=== PATIENT | female | born 1995 | race Caucasian/White ===

== ENCOUNTER 2018-03-11 16:06 | Emergency (ER) | payer OTHER ==
[2018-03-11 17:24] VITALS: RESP 18
[2018-03-11] MEDS ORDERED: ONDANSETRON 4 MG ODT STARTER PACK 2 TAB BTL PO STA (18:43)
--- NOTE | 2018-03-11 18:45 | ED ---
Abdominal Pain HPI - General Chief Complaint: Abdominal Pain Stated Complaint: abd pain Time Seen by Provider: 03/11/18 18:40 Source: patient Mode of arrival: ambulatory Limitations: no limitations - History of Present Illness Initial Comments: 22-year-old female patient presents to the emergency department today for evaluation of vomiting and diarrhea. Patient states that symptoms started this morning, states that she is feeling improved however her boss requires a note to return to work. Patient states that she did have one episode of diarrhea this morning. States that she's had multiple episodes of diarrhea throughout the afternoon. She denies any hematochezia, melena, or hematemesis. Denies any fevers or chills. She is having some mild midepigastric discomfort but denies any other abdominal pain. Denies any back pain, hematuria, dysuria, urinary frequency, urinary urgency. She denies any chance of . Patient does report that her roommate is sick with similar symptoms. Patient denies any recent rash, shortness breath, chest pain, back pain, numbness, tingling, dizziness, weakness, hematuria, dysuria, urinary urgency, urinary frequency, headache, visual changes, or any other complaints. - Related Data Home Medications Medication Instructions Recorded Confirmed No Known Home Medications 03/11/18 03/11/18 Allergies Allergy/AdvReac Type Severity Reaction Status Date / Time No Known Allergies Allergy Verified 03/11/18 18:41 Review of Systems ROS Statement: Those systems with pertinent positive or pertinent negative responses have been documented in the HPI. ROS Other: All systems not noted in ROS Statement are negative. Past Medical History Past Medical History: GERD/Reflux History of Any Multi-Drug Resistant Organisms: None Reported Past Surgical History: No Surgical Hx Reported Past Psychological History: No Psychological Hx Reported Smoking Status: Never smoker Past Alcohol Use History: None Reported Past Drug Use History: None Reported General Exam Limitations: no limitations General appearance: alert, in no apparent distress, other (This is a well- developed, well-nourished adult female patient in no acute distress. Vital signs upon presentation are temperature 98.2F, pulse 69, respirations 18, blood pressure 130/80, pulse ox 99% on room air.) Eye exam: Present: normal appearance, PERRL, EOMI. Absent: scleral icterus, conjunctival injection, periorbital swelling ENT exam: Present: normal exam, mucous membranes moist Respiratory exam: Present: normal lung sounds bilaterally. Absent: respiratory distress, wheezes, rales, rhonchi, stridor Cardiovascular Exam: Present: regular rate, normal rhythm, normal heart sounds. Absent: systolic murmur, diastolic murmur, rubs, gallop, clicks GI/Abdominal exam: Present: soft, normal bowel sounds. Absent: distended, tenderness, guarding, rebound, rigid Neurological exam: Present: alert, oriented X3, CN II-XII intact Psychiatric exam: Present: normal affect, normal mood Skin exam: Present: warm, dry, intact, normal color. Absent: rash Course Vital Signs 03/11/18 17:21 Temperature 98.2 F Pulse Rate 69 Respiratory 18 Rate Blood Pressure 130/80 O2 Sat by Pulse 99 Oximetry Medical Decision Making - Medical Decision Making 22-year-old female patient presented to the emergency department today requesting work note. Patient had some vomiting and diarrhea earlier in the day and is unable to return to work without a note. Patient was offered lab testing IV fluids, and medications for her symptoms however she refuses stating she just stated that over the to be discharged. Return parameters were discussed in detail. She is instructed to follow-up with her primary care physician for recheck as soon as possible. She verbalizes understanding and agrees this plan Disposition Clinical Impression: Gastroenteritis Disposition: HOME SELF-CARE Condition: Good Instructions: Gastroenteritis (ED) Additional Instructions: Start with clear liquid diet and advance as tolerated. Take medication as directed. Return immediately for any new, worsening, or concerning symptoms. Is patient prescribed a controlled substance at d/c from ED?: No Referrals: None,Stated [Primary Care Provider] - 1-2 days Time of Disposition: 18:45
[2018-03-11 19:25] VITALS: BP 112/65; PULSE 77; TEMP 96.4
== END 2018-03-11 19:24 | disposition home or self-care (01) ==
LOC: EC 16:06
DX: K52.9 Noninfective gastroenteritis and colitis, unspecified (principal)
CPT/HCPCS: 99283; S0119

== ENCOUNTER 2022-03-15 08:38 | Emergency (ER) | payer MEDICAID ==
[2022-03-15 08:50] VITALS: BP 116/70; PULSE 78; RESP 16; TEMP 98.6
[2022-03-15 09:43] LABS: ALT 42 U/L (4-34); AST 32 U/L (14-36); African American GFR (CKD) >90 (>60 ml/min/1.73 sqM); Albumin 4.4 g/dL (3.5-5.0); Alkaline Phosphatase 70 U/L (38-126); Anion Gap 7 mmol/L; Blood Urea Nitrogen 6 mg/dL (7-17); Calcium 9.1 mg/dL (8.4-10.2); Carbon Dioxide 25 mmol/L (22-30); Chloride 103 mmol/L (98-107); Glucose 86 mg/dL (74-99); Non-African American GFR(CKD) >90 (>60 ml/min/1.73 sqM); Potassium 3.8 mmol/L (3.5-5.1); Sodium 135 mmol/L (137-145); Total Bilirubin 0.6 mg/dL (0.2-1.3); Total Protein 7.2 g/dL (6.3-8.2)
[2022-03-15 09:45] LABS: Basophils % (A) 0 %; Eosinophils # (A) 0.1 k/uL (0-0.7); Eosinophils % (A) 2 %; HCT 38.4 % (34.0-46.0); Lymphocytes # (A) 1.3 k/uL (1.0-4.8); Lymphocytes % (A) 16 %; MCH 27.8 pg (25.0-35.0); MCV 81.8 fL (80.0-100.0); Mean Platelet Volume 7.5; Monocytes # (A) 0.3 k/uL (0-1.0); Monocytes % (A) 4 %; Neutrophils # (A) 6.2 k/uL (1.3-7.7); Neutrophils % (A) 77 %; Platelet Count 397 k/uL (150-450); RBC 4.69 m/uL (3.80-5.40); RDW 12.1 % (11.5-15.5); WBC 8.1 k/uL (3.8-10.6)
--- NOTE | 2022-03-15 10:08 | ED ---
Female Urogenital HPI - General Chief complaint: Vaginal Bleeding Stated complaint: 10 weeks , vaginal bleeding Time Seen by Provider: 03/15/22 09:11 Source: patient, RN notes reviewed Mode of arrival: ambulatory Limitations: no limitations - History of Present Illness Initial comments: This is a 26-year-old female who presents to the emergency department for vaginal bleeding. She is and approximately 10 weeks . States that late last night, she started having vaginal bleeding, and this morning she is only having light spotting. Denies passing any clots. She has minor lower abdominal cramping and nausea. However, the nausea has been present throughout most of the . She is established with Dr. Esparza, [employer] [employer], and had an ultrasound 8 days ago that revealed no irregularities. Denies any fevers, chills, sore throat, cough, dyspnea, chest pain, palpitations, vomiting, diarrhea, back pain, or headaches. MD Complaint: vaginal bleeding Onset/Timin -: days(s) Patient : Yes Number of weeks : 10 - Related Data Home Medications Medication Instructions Recorded Confirmed No Known Home Medications 03/11/18 03/11/18 Allergies Allergy/AdvReac Type Severity Reaction Status Date / Time No Known Allergies Allergy Verified 03/15/22 08:47 Review of Systems ROS Statement: Those systems with pertinent positive or pertinent negative responses have been documented in the HPI. ROS Other: All systems not noted in ROS Statement are negative. Past Medical History Past Medical History: GERD/Reflux History of Any Multi-Drug Resistant Organisms: None Reported Past Surgical History: No Surgical Hx Reported Past Psychological History: No Psychological Hx Reported Past Alcohol Use History: None Reported Past Drug Use History: None Reported General Exam Limitations: no limitations General appearance: alert, in no apparent distress Head exam: Present: atraumatic, normocephalic, normal inspection Respiratory exam: Present: normal lung sounds bilaterally. Absent: respiratory distress, wheezes, rales, rhonchi, stridor Cardiovascular Exam: Present: regular rate, normal rhythm, normal heart sounds. Absent: systolic murmur, diastolic murmur, rubs, gallop, clicks GI/Abdominal exam: Present: normal bowel sounds Neurological exam: Present: alert, oriented X3, CN II-XII intact Psychiatric exam: Present: normal affect, normal mood Skin exam: Present: warm, dry, intact, normal color. Absent: rash Course Vital Signs 03/15/22 08:48 Temperature 98.6 F Pulse Rate 78 Respiratory 16 Rate Blood Pressure 116/70 O2 Sat by Pulse 96 Oximetry Medical Decision Making - Medical Decision Making This is a 26-year-old female who presents to the emergency department for vaginal bleeding in . Lab work was nonactionable. Patient is Rh+ and no RhoGAM is indicated. Obstetrics ultrasound obtained, revealing a viable intrauterine and a very minor perigestational bleed. Findings reviewed with the patient. Advised that if she continues to have any cramping, she can take Tylenol. Reminded her to avoid bfnd-oak-[id number] anti- inflammatories such as ibuprofen. Advised vitamin B6 and Unisom for any additional nausea. She is also instructed to contact her pharmacist hospital's office regarding her appointment today and her symptoms in the event they want her to follow-up sooner. Return precautions reviewed in depth, the patient is instructed to return to the emergency department with any new, worsening, or concerning symptoms. Patient verbalized understanding. This case was discussed in detail with the attending ED physician. Presentation, findings, and treatment plan discussed in detail as well. - Lab Data Result diagrams: 03/15/22 09:24 03/15/22 09:24 Lab Results 03/15/22 03/15/22 03/15/22 Range/Units 09:20 09:24 09:24 WBC 8.1 (3.8-10.6) k/uL RBC 4.69 (3.80-5.40) m/uL Hgb 13.0 (11.4-16.0) gm/dL Hct 38.4 (34.0-46.0) % MCV 81.8 (80.0-100.0) fL MCH 27.8 (25.0-35.0) pg MCHC 34.0 (31.0-37.0) g/dL RDW 12.1 (11.5-15.5) % Plt Count 397 (150-450) k/uL MPV 7.5 Neutrophils % 77 % Lymphocytes % 16 % Monocytes % 4 % Eosinophils % 2 % Basophils % 0 % Neutrophils # 6.2 (1.3-7.7) k/uL Lymphocytes # 1.3 (1.0-4.8) k/uL Monocytes # 0.3 (0-1.0) k/uL Eosinophils # 0.1 (0-0.7) k/uL Basophils # 0.0 (0-0.2) k/uL Sodium (137-145) mmol/L Potassium (3.5-5.1) mmol/L Chloride (98-107) mmol/L Carbon Dioxide (22-30) mmol/L Anion Gap mmol/L BUN (7-17) mg/dL Creatinine (0.52-1.04) mg/dL Est GFR (CKD-EPI)AfAm (>60 ml/min/1.73 sqM) Est GFR (CKD-EPI)NonAf (>60 ml/min/1.73 sqM) Glucose (74-99) mg/dL Calcium (8.4-10.2) mg/dL Total Bilirubin (0.2-1.3) mg/dL AST (14-36) U/L ALT (4-34) U/L Alkaline Phosphatase (38-126) U/L Total Protein (6.3-8.2) g/dL Albumin (3.5-5.0) g/dL HCG, Quant mIU/mL Urine Color Yellow Urine Appearance Cloudy H (Clear) Urine pH 6.0 (5.0-8.0) Ur Specific [place] 1.018 (1.001-1.035) Urine Protein Trace H (Negative) Urine Glucose (UA) Negative (Negative) Urine Ketones 2+ H (Negative) Urine Blood Large H (Negative) Urine Nitrite Negative (Negative) Urine Bilirubin Negative (Negative) Urine Urobilinogen <2.0 (<2.0) mg/dL Ur Leukocyte Esterase Negative (Negative) Urine RBC 1 (0-5) /hpf Urine WBC 2 (0-5) /hpf Ur Squamous Epith Cells 8 H (0-4) /hpf Urine Bacteria Rare H (None) /hpf Urine Mucus Few H (None) /hpf Blood Type A Positive Blood Type Recheck No Previous Record Bld Type Recheck Status [facility] ONLY 03/15/22 Range/Units 09:24 WBC (3.8-10.6) k/uL RBC (3.80-5.40) m/uL Hgb (11.4-16.0) gm/dL Hct (34.0-46.0) % MCV (80.0-100.0) fL MCH (25.0-35.0) pg MCHC (31.0-37.0) g/dL RDW (11.5-15.5) % Plt Count (150-450) k/uL MPV Neutrophils % % Lymphocytes % % Monocytes % % Eosinophils % % Basophils % % Neutrophils # (1.3-7.7) k/uL Lymphocytes # (1.0-4.8) k/uL Monocytes # (0-1.0) k/uL Eosinophils # (0-0.7) k/uL Basophils # (0-0.2) k/uL Sodium 135 L (137-145) mmol/L Potassium 3.8 (3.5-5.1) mmol/L Chloride 103 (98-107) mmol/L Carbon Dioxide 25 (22-30) mmol/L Anion Gap 7 mmol/L BUN 6 L (7-17) mg/dL Creatinine 0.58 (0.52-1.04) mg/dL Est GFR (CKD-EPI)AfAm >90 (>60 ml/min/1.73 sqM) Est GFR (CKD-EPI)NonAf >90 (>60 ml/min/1.73 sqM) Glucose 86 (74-99) mg/dL Calcium 9.1 (8.4-10.2) mg/dL Total Bilirubin 0.6 (0.2-1.3) mg/dL AST 32 (14-36) U/L ALT 42 H (4-34) U/L Alkaline Phosphatase 70 (38-126) U/L Total Protein 7.2 (6.3-8.2) g/dL Albumin 4.4 (3.5-5.0) g/dL HCG, Quant 478415.0 mIU/mL Urine Color Urine Appearance (Clear) Urine pH (5.0-8.0) Ur Specific [place] (1.001-1.035) Urine Protein (Negative) Urine Glucose (UA) (Negative) Urine Ketones (Negative) Urine Blood (Negative) Urine Nitrite (Negative) Urine Bilirubin (Negative) Urine Urobilinogen (<2.0) mg/dL Ur Leukocyte Esterase (Negative) Urine RBC (0-5) /hpf Urine WBC (0-5) /hpf Ur Squamous Epith Cells (0-4) /hpf Urine Bacteria (None) /hpf Urine Mucus (None) /hpf Blood Type Blood Type Recheck Bld Type Recheck Status - Radiology Data Radiology results: report reviewed, image reviewed Disposition Clinical Impression: Vaginal bleeding during Disposition: HOME SELF-CARE Instructions (If sedation given, give patient instructions): Non-Threatening First Trimester Vaginal Bleed (ED), Subchorionic Hemorrhage (ED) Additional Instructions: Return to the emergency department with any new, worsening, or concerning symptoms. The ultrasound revealed a perigestational bleed, which may also be referred to as a subchorionic hematoma. Contact your pharmacist hospital, and alert their office of these results. Take Tylenol as needed for any pain, and avoid ibuprofen or other anti-inflammatories. You may take [id number] vitamin B6 with Unisom as needed for nausea in . Follow up with your primary care provider in 1-2 days. Is patient prescribed a controlled substance at d/c from ED?: No Referrals: None,Stated [Primary Care Provider] - 1-2 days Jonas Esparza MD [STAFF PHYSICIAN] - 1-2 days
[2022-03-15 10:25] LABS: Appearance,Urine Cloudy (Clear); Bacteria,Urine Rare /hpf; Bilirubin,Urine Negative (Negative); Blood,Urine Large (Negative); Color,Urine Yellow; Glucose,Urine (UA) Negative (Negative); Ketones,Urine 2+ (Negative); Leukocyte Esterase,Urine Negative (Negative); Mucus,Urine Few /hpf; Nitrite,Urine Negative (Negative); Protein,Urine Trace (Negative); RBC,Urine 1 /hpf (0-5); Specific Gravity,Urine 1.018 (1.001-1.035); Squamous Epithelial Cell,Urine 8 /hpf (0-4); Urobilinogen,Urine <2.0 mg/dL (<2.0); WBC,Urine 2 /hpf (0-5)
--- NOTE | 2022-03-15 10:43 | US ---
EXAMINATION TYPE: Ultrasound OB <= 14 week fetus DATE OF EXAM: 03/15/2022 9:58 AM COMPARISON: NONE CLINICAL HISTORY: 26-year-old female Vaginal bleeding in . vaginal bleeding x 1 day EXAM PERFORMED: Transabdominal (TA) FINDINGS: EXAM MEASUREMENTS: GESTATIONAL AGE / DATING Physician Established: Not yet established Dates by LMP: (10 weeks/2 days) EDC: 10/09/22 Dates by First Scan: No previous this is first scan Dates by Current Scan for: ( weeks/1 days) EDC: 10/10/22 MATERNAL ANATOMY Uterus: 8.4 x 6.4 x 6.6cm Right Ovary: 3.8 x 2.8 x 2.5cm Left Ovary: 2.8 x 1.7 x 2.1cm Post CDS / Adnexa: appears wnl Presence of free fluid: no Presence of corpus luteal cyst: yes, hypoechoic area right ovary = 1.7 x 2.3 x 2.0cm Presence of subchorionic bleed: Yes, tiny 5 mm anterior fundal region. GESTATION / SURVEY CRL: 3.3cm (10 weeks/1 days) Yolk Sac (normal less than 6mm): 0.5cm Heart Rate: 161 bpm Rhythm: Normal IUP: Viable IUP Date of LMP: 01/02/22 Beta HcG (if available): Not available at this time IMPRESSION: 1. Single live intrauterine with estimated gestational age of 10 weeks 2 days. Current ultr asound biometry is concordant at 10 weeks 1 days by crown-rump length. 2. Tiny 5 mm perigestational bleed. 3. Follow-up as clinically indicated. Otherwise, complete survey recommended at 18-20 weeks.
== END 2022-03-15 11:00 | disposition home or self-care (01) ==
LOC: EC 08:38
DX: O20.9 Hemorrhage in early pregnancy, unspecified (principal); Z3A.10 10 weeks gestation of pregnancy
CPT/HCPCS: 36415; 76801; 80053; 81001; 84702; 85025; 86900; 86901; 99284

== ENCOUNTER 2022-10-05 08:19 | Inpatient (IN) | payer MEDICAID ==
[2022-10-05] MEDS ORDERED: OXYTOCIN 10 UNIT/ML 1 ML VIAL IM PRN (09:14)
[2022-10-05] MEDS ORDERED: TERBUTALINE 1 MG/ML VIAL SQ PRN (09:14)
[2022-10-05] MEDS ORDERED: METHYLERGONOVINE 0.2 MG/ML 1 ML AMP IM PRN (09:14)
[2022-10-05] MEDS ORDERED: CARBOPROST TROMETHAMINE 250 MCG/ML 1 ML AMP IM PRN (09:14)
[2022-10-05] MEDS ORDERED: LIDOCAINE 0.5% (PF) 5 MG/ML (50 ML SDV) SQ PRN (09:14)
[2022-10-05] MEDS ORDERED: miSOPROStoL 200 MCG TAB PO PRN (09:14)
[2022-10-05] MEDS ORDERED: TRANEXAMIC 1,000 MG/100ML-NACL 1,000 MG in EMPTY BAG 1 BAG IV PRN (09:14)
[2022-10-05] MEDS: LACTATED RINGERS 1,000 ML IV SCH ×2 (09:19→18:19)
[2022-10-05 09:33] LABS: Basophils % (A) 0 %; Eosinophils # (A) 0.1 k/uL (0-0.7); Eosinophils % (A) 1 %; HCT 38.6 % (34.0-46.0); HGB 12.9 gm/dL (11.4-16.0); Lymphocytes # (A) 0.9 k/uL (1.0-4.8); Lymphocytes % (A) 5 %; MCH 28.5 pg (25.0-35.0); MCHC 33.3 g/dL (31.0-37.0); MCV 85.5 fL (80.0-100.0); Mean Platelet Volume 8.4; Monocytes # (A) 0.3 k/uL (0-1.0); Monocytes % (A) 2 %; Neutrophils # (A) 15.9 k/uL (1.3-7.7); Neutrophils % (A) 92 %; Platelet Count 330 k/uL (150-450); RBC 4.52 m/uL (3.80-5.40); WBC 17.3 k/uL (3.8-10.6)
[2022-10-05] MEDS ORDERED: NALBUPHINE 10 MG/ML (10 ML MDV) IV PRN (10:12)
--- NOTE | 2022-10-05 10:17 | P.HPOB ---
History of Present Illness H&P Date: 10/05/22 Chief Complaint: 39-5/7 weeks, labor The patient is a 27-year-old 2 para 0010 admitted at 39-5/7 weeks as established by last menstrual period and confirmed by 9 week ultrasound. She is admitted in active labor with documented spontaneous rupture of membranes and al l signs reassuring, category 1 heart rate tracing. She does carry the diagnosis of intrauterine growth restriction with growth being steadily at the 9th percentile in the third trimester. All testing has been reassuring since 32 weeks. The fetus is thought to be constitutionally small rather than growth restricted. Group B strep status is negative. Obstetrical history: 2 para 0010 with current statistics listed in history of present illness. EDC of 10/07/2022 was established by last menstrual period and confirmed by 9 week ultrasound. Laboratory workup demonstrates a blood type of A+ with a negative antibody screen. Rubella status is immune. The remainder of the laboratory workup was within normal limits. One hour Glucola was initially elevated but followed by a normal three-hour glucose tolerance test. Group B strep status is negative. Gynecologic history: Unremarkable with no history of any infections to include STDs. Review of Systems Review of systems is confined to history of present illness. Past Medical History Past Medical History: GERD/Reflux History of Any Multi-Drug Resistant Organisms: None Reported Past Surgical History: No Surgical Hx Reported Past Psychological History: No Psychological Hx Reported Past Alcohol Use History: None Reported Past Drug Use History: None Reported Medications and Allergies Home Medications Medication Instructions Recorded Confirmed Type Vit No.179/Iron/Folic 1 each PO DAILY 10/05/22 10/05/22 History [ Tablet] Allergies Allergy/AdvReac Type Severity Reaction Status Date / Time No Known Allergies Allergy Verified 10/05/22 09:12 Exam Intake and Output 10/04/22 10/05/22 10/05/22 22:59 06:59 14:59 Other: Weight 65.317 kg In general, this is a well-developed, well-nourished white female in no acute distress. Her heart has a regular rhythm and rate without murmur. Her lungs clear to auscultation bilaterally in all [place]. Her abdomen is gravid, nondistended, has normal active bowel sounds, is soft, nontender, and without any palpable masses aside from the uterine fundus. Her extremities are without any cyanosis, clubbing, or significant edema and are nontender to palpation bilaterally. Digital cervical examination performed by the nursing staff demonstrates discharged to be 5 cm dilated, 90% effaced, the vertex in presentation at -1 station. Spontaneous rupture of membranes is documented with clear fluid. Results Result Diagrams: 10/05/22 09:18 Abnormal Lab Results - Last 24 Hours (Table) 10/05/22 Range/Units 09:18 WBC 17.3 H (3.8-10.6) k/uL Neutrophils # 15.9 H (1.3-7.7) k/uL Lymphocytes # 0.9 L (1.0-4.8) k/uL Assessment and Plan (1) Intrauterine growth retardation in Current Visit: Yes Status: Acute Code(s): O36.5990 - MATERN CARE FOR OTH OR SUSP POOR FETL GRTH, UNSP TRI, UNSP SNOMED Code(s): 547525422 (2) Active labor at term Current Visit: Yes Status: Acute Code(s): ZDX2898 - SNOMED Code(s): 00754342 Plan: The patient is admitted for active management of labor. She has requested minimal intervention if possible. She will have close maternal and surveillance and expectant management will be practiced. She is a good candidate for either IV, epidural, or nitrous analgesia, whichever she may choose.
[2022-10-05] MEDS ORDERED: HYDROCORTISONE 2.5% RECTAL CREAM 30 GM TUBE RECTAL PRN (15:12)
[2022-10-05] MEDS ORDERED: ACETAMINOPHEN TAB 325 MG TAB PO PRN (15:12)
[2022-10-05] MEDS ORDERED: BENZOCAINE/MENTHOL SPRAY 1 GM/SPRAY AEROSOL TOPICAL PRN (15:12)
[2022-10-05] MEDS ORDERED: LANOLIN CREAM 5 GM TUBE TOPICAL PRN (15:12)
[2022-10-05] MEDS ORDERED: diphenhydrAMINE 50 MG CAP PO PRN (15:12)
[2022-10-05] MEDS ORDERED: SIMETHICONE 80 MG CHEWABLE PO PRN (15:12)
[2022-10-05] MEDS ORDERED: HYDROcodone/APAP 7.5-325MG 1 EACH TAB PO PRN (15:12)
[2022-10-05] MEDS ORDERED: diphenhydrAMINE 50 MG/ML 1 ML VIAL IVP PRN ×2 (15:12)
[2022-10-05] MEDS ORDERED: ZOLPIDEM 5 MG TAB PO PRN (15:12)
[2022-10-05] MEDS ORDERED: HYDROcodone/APAP 5-325MG 1 EACH TAB PO PRN (15:12)
[2022-10-05] MEDS ORDERED: diphenhydrAMINE 25 MG CAP PO PRN (15:12)
[2022-10-05] MEDS ORDERED: OXYTOCIN 30 UNITS/500 ML NS 30 UNIT in SALINE 1 500ML.BAG IV SCH (15:15)
--- NOTE | 2022-10-05 15:15 | P.PROBDLV ---
Vaginal Delivery Note - . Vaginal Delivery Note: The patient is a 27-year-old 2 para 0010 admitted at 39-5/7 weeks by good dating parameters. She is admitted in active labor with documented spontaneous rupture of membranes and all signs reassuring, category 1 heart rate tracing. Her was complicated only by a diagnosis of intrauterine growth restriction with the fetus found at just under the 10th percentile during the third trimester. The fetus was felt to be constitutionally small rather than growth restricted. Nevertheless, the patient did have reassuring placed weekly testing from 32 weeks until labor. On labor and delivery, she requested as much nonintervention as possible. She labored on her own without augmentation and made average and steady progress to complete. She then pushed over the course of approximate 40 minutes to a normal spontaneous vaginal delivery of a viable 6 lbs. 1 oz. baby girl with Apgars of 9 at 1 minute and 9 at 5 minutes delivered in the direct occiput anterior position. The placenta was delivered spontaneously, intact, and grossly normal with a grossly normal three-vessel cord inserted approximate 4-5 cm from the margin of the placental disc. Was a small second-degree midline perineal laceration was repaired in standard fashion using 3-0 chromic catgut without difficulty. Estimated blood loss for the case was 150 mL. There were no complications. All sponge, instrument, needle counts were correct. Both mother and are resting comfortably in recovery.
[2022-10-05] MEDS: IBUPROFEN 600 MG TAB PO PRN ×2 (16:29→23:14)
[2022-10-05] MEDS: SENNOSIDES-DOCUSATE SODIUM 1 EACH TAB PO SCH (19:19)
[2022-10-06 06:19] LABS: Basophils % (A) 0 %; Eosinophils # (A) 0.1 k/uL (0-0.7); Eosinophils % (A) 0 %; HCT 34.8 % (34.0-46.0); HGB 11.7 gm/dL (11.4-16.0); Lymphocytes # (A) 1.7 k/uL (1.0-4.8); Lymphocytes % (A) 10 %; MCH 28.4 pg (25.0-35.0); MCHC 33.7 g/dL (31.0-37.0); MCV 84.2 fL (80.0-100.0); Mean Platelet Volume 8.3; Monocytes # (A) 0.7 k/uL (0-1.0); Monocytes % (A) 4 %; Neutrophils # (A) 13.9 k/uL (1.3-7.7); Neutrophils % (A) 84 %; Platelet Count 305 k/uL (150-450); RBC 4.13 m/uL (3.80-5.40); RDW 13.4 % (11.5-15.5); WBC 16.5 k/uL (3.8-10.6)
[2022-10-06] MEDS: SENNOSIDES-DOCUSATE SODIUM 1 EACH TAB PO SCH (08:53)
[2022-10-06 10:06] VITALS: RESP 18
--- NOTE | 2022-10-06 11:21 | P.DS ---
Providers Date of admission: 10/05/22 08:47 Expected date of discharge: 10/06/22 Attending physician: Jonas Esparza Primary care physician: Stated None - Discharge Diagnosis(es) (1) Active labor at term Current Visit: Yes Status: Acute (2) Intrauterine growth retardation in Current Visit: Yes Status: Acute (3) Normal spontaneous vaginal delivery Current Visit: Yes Status: Acute (4) Nuchal cord, delivered, current hospitalization Current Visit: Yes Status: Acute (5) Perineal laceration during delivery Current Visit: Yes Status: Acute (6) Spontaneous rupture of amniotic membranes Current Visit: Yes Status: Acute Hospital Course: 27-year-old admitted at 39-5/7 weeks in active labor with document of spontaneous rupture of membranes. Patient has been complicated by diagnosis of intrauterine growth restriction with the fetus found just under the 10th percentile in the third trimester. The patient did have reassuring testing from 32 weeks and to labor. On labor and delivery she requested as much nonintervention as possible. She labored on her own without augmentation and made average study progress to complete. Once complete she had a normal spontaneous vaginal delivery of a viable female infant 6 lbs. 1 oz. with Apgars of 9 and 9 at one and 5 minutes respectively. Small second-degree midline laceration was noted after delivery and repaired in the usual fashion with 3-0 chromic catgut without difficulty. Patient's course has been uneventful. On this day #1 she is ambulating and voiding without difficulty. She is tolerating a regular diet without nausea or vomiting. She states her pain is well-controlled. She would like discharge home at 24 hours if possible. Patient Condition at Discharge: Good Plan - Discharge Summary New Discharge Prescriptions: No Action Vit No.179/Iron/Folic [ Tablet] 1 each PO DAILY Discharge Medication List Vit No.179/Iron/Folic [ Tablet] 1 each PO DAILY 10/05/22 [History] Follow up Appointment(s)/Referral(s): Jonas Esparza MD [STAFF PHYSICIAN] - 4 Weeks Patient Instructions/Handouts: Vaginal Delivery (DC), Vaginal Delivery (GEN) Activity/Diet/Wound Care/Special Instructions: No tub baths or intercourse until 6 weeks . Gflr-bye-ciflxgg ibuprofen 600 mg every 6 hours as needed for pain. Discharge Disposition: HOME SELF-CARE
[2022-10-06 12:34] VITALS: BP 107/72; PULSE 101; TEMP 98.2
== END 2022-10-06 16:16 | disposition home or self-care (01) | DRG 807 ==
LOC: FBPOP 08:19 → 4FBP 08:47
PROVIDERS: ADMIT Obstetrics & Gynecology; ATTEND Obstetrics & Gynecology
PROC: 0KQM0ZZ Repair Perineum Muscle, Open Approach (ICD-10-PCS; principal; 2022-10-05)
PROC: 10E0XZZ Delivery of Products of Conception, External Approach (ICD-10-PCS; principal; 2022-10-05)
DX: O36.5930 Maternal care for other known or suspected poor fetal growth, third trimester, not applicable or unspecified (principal); Z37.0 Single live birth; O69.81X0 Labor and delivery complicated by cord around neck, without compression, not applicable or unspecified; O70.1 Second degree perineal laceration during delivery; Z3A.39 39 weeks gestation of pregnancy; Z28.310 Unvaccinated for COVID-19; Z28.21 Immunization not carried out because of patient refusal
CPT/HCPCS: 85025; 86850; 86900; 86901

== ENCOUNTER 2024-09-01 16:18 | Outpatient (CLI) | payer MEDICAID ==
[2024-09-01 18:32] VITALS: BP 118/60; PULSE 80; RESP 16; TEMP 97.2
--- NOTE | 2024-09-19 11:37 | P.MSEPDOC ---
Presenting Problems - Arrival Data Date of Arrival on Unit: 09/01/24 Time of Arrival on Unit: 16:18 Mode of Transport: Ambulatory - Complaint OB-Reason for Admission/Chief Complaint: Headache, Dizziness Comment: PT here to be seen in triage for dizziness, headaches and decreased BP. was working ng ED to day and her Bp was 96/66 there so she came up to trage to be evauated Medical History - Information : 2 Para: 1 Term: 1 : 0 Abortions: Spontaneous or Elective: 0 Number of Living Children: 1 - Gestational Age Gestational Age by YEIMY (wks/days): 32 Weeks and 3 Days Review of Systems - Review of Systems Constitutional: No problems Breast: No problems ENT: No problems Cardiovascular: No problems Respiratory: No problems Gastrointestinal: No problems Genitourinary: No problems Musculoskeletal: No problems Neurological: No problems Skin: No problems Vital Signs - Temperature Temperature: 97.2 F Temperature Source: Temporal Artery Scan - Pulse Left Pulse Rate: 80 Pulse Assessment Method: Automatic Cuff - Respirations Respiratory Rate: 16 Oxygen Delivery Method: Room Air O2 Sat by Pulse Oximetry: 98 - Blood Pressure Left Arm Blood Pressure: 118/60 Blood Pressure Mean: 79 Blood Pressure Source: Automatic Cuff Medical Screen Scoring - Uterine Contractions Frequency From (mins): 0 Frequency To (mins): 0 Duration From (seconds): 0 Duration To (seconds): 0 Resting: Soft to palpation - Assessment - Baby A Baseline FHR: 140 Heart Rate - NICHD Category: Category I (Normal) NST: Reactive Physician Notification - Physician Notified Physician Notified Date: 09/01/24 Physician Notified Time: 17:15 Physician: Jonas Esparza New Order Received: Yes - Notification Comment Comment: Dr Esparza updated with pts reason for visit, maternal vitals WNL, NST reactive CAT 1. Discharge order received. Pt to be advised to hydrated well, eat small freq meals and may take tylenol for headache. Keep appt this week with Dr Esparza Maternal Triage Index - Maternal Triage Index Presenting for scheduled procedure w/no complaint: No - Stat/Priority 1 Stat Priority 1: No - Urgent/Priority 2 Urgent Priority 2: No - Prompt/Priority 3 Prompt Priority 3: No - Non-Urgent/Priority 4 Non-Urgent Priority 4: Yes Criteria Met for Priority 4: headache dizziness low blood pressure when self checked Disposition - Disposition OB Disposition: Discharge to home Discharge Date: 09/01/24 Discharge Time: 17:17 I agree with the RN Medical Screening Exam: Yes Physician's MSE Comment: I have neither seen nor examined the patient. Case reviewed; plan agreed upon as documented in EMR&OBIX.: Yes Diagnosis: RELATED CONDITIONS, UNSPECIFIED, THIRD TRIMESTER
== END 2024-09-01 17:17 ==
LOC: FBPOP 16:18
PROVIDERS: ATTEND Obstetrics & Gynecology
DX: O26.893 Other specified pregnancy related conditions, third trimester (principal); R51.9 Headache, unspecified; R42 Dizziness and giddiness; Z3A.32 32 weeks gestation of pregnancy
CPT/HCPCS: 59025; 99213

== ENCOUNTER 2024-10-09 01:45 | Inpatient (IN) | payer BC ==
[2024-10-09] MEDS ORDERED: miSOPROStoL 200 MCG TAB RECTAL PRN (01:55)
[2024-10-09] MEDS ORDERED: TERBUTALINE 1 MG/ML VIAL SQ PRN (01:55)
[2024-10-09] MEDS ORDERED: CARBOPROST TROMETHAMINE 250 MCG/ML 1 ML AMP IM PRN (01:55)
[2024-10-09] MEDS ORDERED: miSOPROStoL 200 MCG TAB PO PRN (01:55)
[2024-10-09] MEDS ORDERED: METHYLERGONOVINE 0.2 MG/ML 1 ML AMP IM PRN (01:55)
[2024-10-09] MEDS ORDERED: TRANEXAMIC 1,000 MG/100ML-NACL 1,000 MG in EMPTY BAG 1 BAG IV PRN (01:55)
[2024-10-09] MEDS ORDERED: OXYTOCIN 30 UNITS/500 ML NS 30 UNIT in SALINE 1 500ML.BAG IV SCH (02:00)
[2024-10-09] MEDS: OXYTOCIN 10 UNIT/ML 1 ML VIAL IM PRN (02:36)
[2024-10-09] MEDS: LIDOCAINE 0.5% (PF) 5 MG/ML (50 ML SDV) SQ PRN (02:37)
[2024-10-09] MEDS ORDERED: diphenhydrAMINE 50 MG CAP PO PRN (02:46)
[2024-10-09] MEDS ORDERED: ZOLPIDEM 5 MG TAB PO PRN (02:46)
[2024-10-09] MEDS ORDERED: diphenhydrAMINE 25 MG CAP PO PRN (02:46)
[2024-10-09] MEDS ORDERED: SIMETHICONE 80 MG CHEWABLE PO PRN (02:46)
[2024-10-09] MEDS ORDERED: diphenhydrAMINE 50 MG/ML 1 ML VIAL IVP PRN ×2 (02:46)
[2024-10-09] MEDS ORDERED: LANOLIN CREAM 1 GM TUBE TOPICAL PRN (02:46)
[2024-10-09] MEDS ORDERED: HYDROCORTISONE 2.5% RECTAL CREAM 30 GM TUBE RECTAL PRN (02:46)
[2024-10-09] MEDS ORDERED: BENZOCAINE/MENTHOL SPRAY 1 GM/SPRAY AEROSOL TOPICAL PRN (02:46)
--- NOTE | 2024-10-09 02:54 | P.HPOB ---
History of Present Illness H&P Date: 10/09/24 Chief Complaint: 37-6/7 weeks, active labor, IUGR The patient is a 29-year-old 3 para 1-0-1-1 admitted at 37-6/7 weeks as established by last menstrual period and confirmed by 10-week ultrasound. She is admitted in active labor with all signs reassuring, category 1 heart rate tracing. Her has been complicated by diagnosis of IUGR with twice weekly NST, weekly BPP, SOFI, and SD ratios since 32 weeks with all parameters being reassuring on a regular basis. She presents to labor and delivery at 6 cm of dilation with membranes intact but shortly thereafter had spontaneous rupture of membranes and progressed very quickly to complete. Group B strep status is negative. Obstetrical history: 3 para 1-0-1-1 with 1 term vaginal delivery also complicated by IUGR. Current statistics are listed in the history of present illness. EDC of 10/24/2024 was established by last menstrual period and confirmed by 10-week ultrasound. Laboratory workup demonstrates a blood type of A+ with a negative antibody screen. Rubella status is immune. The remainder of the laboratory workup was within normal limits. 1 hour Glucola was normal and group B strep status is negative. Gynecologic history: Unremarkable with no history of any infections to include STDs. Review of Systems Review of systems is confined to history of present illness. Past Medical History Past Medical History: GERD/Reflux History of Any Multi-Drug Resistant Organisms: None Reported Past Surgical History: No Surgical Hx Reported Past Anesthesia/Blood Transfusion Reactions: No Reported Reaction Smoking Status: Never smoker - Past Family History Father Family Medical History: No Reported History Medications and Allergies Home Medications Medication Instructions Recorded Confirmed Type Vit No.179/Iron/Folic 1 each PO DAILY 10/05/22 10/09/24 History [ Tablet] Allergies Allergy/AdvReac Type Severity Reaction Status Date / Time No Known Allergies Allergy Verified 10/05/22 09:12 Exam Intake and Output 10/08/24 10/08/24 10/09/24 14:59 22:59 06:59 Other: Weight 66.224 kg In general, this is a well-developed, well-nourished white female in discomfort as she is in active labor. Her heart has a regular rhythm and rate without murmur. Her lungs are clear to auscultation bilaterally in all plunkett. Her abdomen is gravid, nondistended, has normal active bowel sounds, soft, nontender, and without any palpable masses aside from uterine fundus. Her extremities are without any cyanosis, clubbing, or edema and are nontender to palpation bilaterally. Digital cervical examination demonstrates her cervix to be 6 cm dilated, 90% effaced, the vertex and presentation at -1-2 station. Membranes are intact at admission. Assessment and Plan (1) Intrauterine growth retardation in Current Visit: Yes Status: Acute Code(s): O36.5990 - MATERN CARE FOR OTH OR SUSP POOR FETL GRTH, UNSP TRI, UNSP SNOMED Code(s): 878547819 (2) Active labor at term Current Visit: Yes Status: Acute Code(s): PEI9625 - SNOMED Code(s): 01592890 Plan: The patient is admitted for active management of labor. She will have close maternal and surveillance and expectant management will be practiced. She is a good candidate for IV or epidural analgesia, whichever she may choose.
--- NOTE | 2024-10-09 02:58 | P.PROBDLV ---
Vaginal Delivery Note - . Vaginal Delivery Note: Date of delivery/service: 10/09/2024 The patient is a 29-year-old 3 para 1-0-1-1 admitted at 37-6/7 weeks by good dating parameters. She is admitted in active labor with all signs reassuring, category 1 heart rate tracing. Her has been complicated by diagnosis of IUGR with reassuring twice-weekly testing since the diagnosis in the early third trimester. Group B strep status is negative. She presented to labor and delivery at 6 cm of dilation with membranes intact. She progressed over the next 10 minutes to complete and had spontaneous rupture of membranes for clear fluid. I was called both at 6 cm and at complete and arrived approximately 10 minutes after the second phone call to find the patient complete and at +3 station. She pushed over the course of the next 2 contractions to a normal spontaneous vaginal delivery of a viable 5 pound 7 ounce baby boy with Apgars of 9 at 1 minute and 9 at 5 minutes delivered in the direct occiput anterior position. The placenta was delivered spontaneously, intact, and grossly normal though it was small with a grossly normal, relatively centrally inserted three-vessel cord. There was a small first-degree midline perineal laceration noted which was repaired with a single [id number]-cabte stitch of 3-0 chromic catgut without difficulty. Estimated blood loss for the case was approximately 200 mL. There were no complications aside from a relatively precipitous nature of the labor and delivery. All sponge, instrument, and needle counts were correct. Both mother and infant are resting comfortably in recovery.
[2024-10-09] MEDS: IBUPROFEN 800 MG TAB PO PRN (04:21)
[2024-10-09 04:22] LABS: Basophils # (A) 0.04 10*3/uL (0.00-0.10); Basophils % (A) 0.2 %; Eosinophils # (A) 0.02 10*3/uL (0.04-0.35); Eosinophils % (A) 0.1 %; HCT 37.1 % (37.2-46.3); HGB 12.5 g/dL (12.0-15.0); Lymphocytes # (A) 1.19 10*3/uL (0.90-5.00); Lymphocytes % (A) 7.1 %; MCH 28.4 pg (27.0-32.0); MCHC 33.7 g/dL (32.0-37.0); MCV 84.3 fL (80.0-97.0); Mean Platelet Volume 10.3 fL (9.5-12.2); Monocytes # (A) 0.49 10*3/uL (0.20-1.00); Monocytes % (A) 2.9 %; Neutrophils # (A) 14.92 10*3/uL (1.80-7.70); Neutrophils % (A) 89.2 %; Platelet Count 361 10*3/uL (140-440); RDW 12.9 % (11.5-14.5); WBC 16.74 10*3/uL (4.50-10.00)
[2024-10-09] MEDS: LACTATED RINGERS 1,000 ML IV SCH (05:07)
[2024-10-09] MEDS: ACETAMINOPHEN TAB 500 MG TAB PO PRN (12:28)
[2024-10-09] MEDS: SENNOSIDES-DOCUSATE SODIUM 1 EACH TAB PO SCH (13:30)
[2024-10-10 07:01] LABS: Basophils # (A) 0.06 10*3/uL (0.00-0.10); Basophils % (A) 0.6 %; Eosinophils # (A) 0.09 10*3/uL (0.04-0.35); Eosinophils % (A) 0.9 %; HCT 33.6 % (37.2-46.3); HGB 11.2 g/dL (12.0-15.0); Lymphocytes # (A) 2.54 10*3/uL (0.90-5.00); Lymphocytes % (A) 24.9 %; MCH 28.6 pg (27.0-32.0); MCHC 33.3 g/dL (32.0-37.0); MCV 85.7 fL (80.0-97.0); Mean Platelet Volume 9.9 fL (9.5-12.2); Monocytes # (A) 0.71 10*3/uL (0.20-1.00); Neutrophils # (A) 6.76 10*3/uL (1.80-7.70); Neutrophils % (A) 66.2 %; Platelet Count 328 10*3/uL (140-440); RBC 3.92 10*6/uL (4.10-5.20); RDW 13.1 % (11.5-14.5)
[2024-10-10 09:10] VITALS: BP 99/67; PULSE 67; RESP 16; TEMP 98
--- NOTE | 2024-10-10 09:29 | P.DS ---
Providers Date of admission: 10/09/24 02:00 Expected date of discharge: 10/10/24 Attending physician: Jonas Esparza Primary care physician: Stated None - Discharge Diagnosis(es) (1) Active labor at term Current Visit: Yes Status: Acute (2) Intrauterine growth retardation in Current Visit: Yes Status: Acute (3) Normal spontaneous vaginal delivery Current Visit: Yes Status: Acute (4) Perineal laceration during delivery Current Visit: Yes Status: Acute (5) Spontaneous rupture of amniotic membranes Current Visit: Yes Status: Acute Hospital Course: This is a 29-year-old 3 now para 2-0-1-2 that presented to labor and delivery on 10/09. Patient was noted to be 37-6/7 weeks with complaints of spontaneous rupture of membranes, active labor. Patient had been receiving routine care which been complicated by diagnosis of intrauterine growth restriction. Patient had a precipitous delivery in OB triage. For full details on the delivery please see the dictated delivery note. Patient delivered a viable male infant at 226, weight of 5 pounds 7 ounces, Apgars of 9 and 9 at 1 and 5 minutes respectively. Patient did sustain a first-degree vaginal laceration which was repaired in the usual fashion. Patient's course has been uneventful. In this day #1 she is ambulating and voiding without difficulty. She is tolerating a regular diet without nausea or vomiting. She states her pain is well-controlled. She denies concerns. She would like discharge home. Patient Condition at Discharge: Good Plan - Discharge Summary New Discharge Prescriptions: No Action Vit No.179/Iron/Folic [ Tablet] 1 each PO DAILY Discharge Medication List Vit No.179/Iron/Folic [ Tablet] 1 each PO DAILY 10/05/22 [History] Follow up Appointment(s)/Referral(s): Jonas Esparza MD [STAFF PHYSICIAN] - 11/17/24 2:30 pm Patient Instructions/Handouts: Vaginal Delivery (DC), Vaginal Delivery (GEN) Activity/Diet/Wound Care/Special Instructions: No tub baths or intercourse until 6 weeks . [id number] ibuprofen 600 mg or 3 tablets every 6 hours as needed for pain. Routine check with Dr. Esparza in 6 weeks. Discharge Disposition: HOME SELF-CARE
== END 2024-10-10 12:10 | disposition home or self-care (01) | DRG 807 ==
LOC: FBPOP 01:45 → 4FBP 02:00
PROVIDERS: ADMIT Obstetrics & Gynecology; ATTEND Obstetrics & Gynecology
PROC: 10E0XZZ Delivery of Products of Conception, External Approach (ICD-10-PCS; principal; 2024-10-09)
PROC: 0HQ9XZZ Repair Perineum Skin, External Approach (ICD-10-PCS; 2024-10-09)
DX: O36.5930 Maternal care for other known or suspected poor fetal growth, third trimester, not applicable or unspecified (principal); Z37.0 Single live birth; O62.3 Precipitate labor; O70.0 First degree perineal laceration during delivery; Z3A.37 37 weeks gestation of pregnancy
CPT/HCPCS: 85025; 86850; 86900; 86901; 99213